=== PATIENT | male | born 1985 | race Caucasian/White ===

== ENCOUNTER 2016-08-18 15:30 | Emergency (ER) | payer SELFPAY ==
[~2016-08-18] VITALS: Ht 172.7 cm; Wt 124.0 kg
[~2016-08-18 15:30] MED LIST: ALPR.5 PO
[2016-08-18 15:39] VITALS: BP 117/73; PULSE 67; RESP 15; TEMP 98.1; O2SAT 98
--- NOTE | 2016-08-18 16:11 | PD ---
HPI Chief Complaint: Pain: Acute or Chronic Time Seen by Provider: 16:11 Travel History International Travel<30 days: No Contact w/Intl Traveler<30days: No Traveled to known affect area: No History of Present Illness HPI 31-year-old male presents to emergency Department with 2 day history of sore throat and ear pain as well as low-grade fever. Patient also reports about a week history of left foot pain which has gotten worse over the past week. 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 He denies any specific injury to this area. Patient denies cough, headache, postnasal drip, nausea, vomiting, or diarrhea. His daughter is sick with a sore throat as well. He has no known drug allergies. PFSH Past Medical History Diminished Hearing: No Tetanus Vaccination: Unknown Influenza Vaccination: No ?: Not Social History Alcohol Use: Yes (Occ.) Tobacco Use: No Substance Use: No Allergies-Medications (Allergen,Severity, Reaction): Coded Allergies: No Known Allergies (Unverified , 08/18/16) Reported Meds & Prescriptions Reported Meds & Active Scripts Active Xanax (Alprazolam) 0.5 Mg Tab 0.5 Mg PO Q8H PRN Review of Systems General / Constitutional: No: Fever Eyes: No: Visual changes HENT: No: Headaches Cardiovascular: No: Chest Pain or Discomfort Respiratory: No: Shortness of Breath Gastrointestinal: No: Abdominal Pain Genitourinary: No: Dysuria Musculoskeletal: No: Pain Skin: No Rash Neurologic: No: Weakness Psychiatric: No: Depression Endocrine: No: Polydipsia Hematologic/Lymphatic: No: Easy Bruising Physical Exam Narrative GENERAL: Patient appears no acute distress. SKIN: Warm and dry. Normal color. Normal turgor. HEAD: Atraumatic. Normocephalic. EYES: Pupils equal and round. No scleral icterus. No injection or drainage. ENT: No nasal bleeding or discharge. No sinus tenderness to palpation. Mucous membranes pink and moist. TMs are somewhat dull and erythematous bilaterally, but no loss of landmarks. Pharynx appears somewhat erythematous bilaterally with mild swelling. No exudate. Uvula is midline. NECK: Trachea midline. Supple and nontender. CARDIOVASCULAR: Regular rate and rhythm. RESPIRATORY: No accessory muscle use. Clear to auscultation. Breath sounds equal bilaterally. GASTROINTESTINAL: Abdomen soft, non-tender, nondistended. Hepatic and splenic margins not palpable. MUSCULOSKELETAL: Extremities without clubbing, cyanosis, or edema. No obvious deformities. Patient has pain along the left dorsal lateral foot without obvious deformity. Ankle is unremarkable. NEUROLOGICAL: Awake and alert. No obvious cranial nerve deficits. Motor grossly within normal limits. Five out of 5 muscle strength in the arms and legs. Normal speech. PSYCHIATRIC: Appropriate mood and affect; insight and judgment normal. Data Data Last Documented VS Vital Signs Date Time Temp Pulse Resp B/P Pulse Ox O2 Delivery O2 Flow Rate FiO2 08/18/16 15:39 98.1 67 15 117/73 98 Orders Foot, Complete ([id number]) (08/18/16 16:17) Ice/Cold Pack (08/18/16 16:17) [facility] Medical Decision Making Medical Screen Exam Complete: Yes Emergency Medical Condition: Yes Differential Diagnosis Pharyngitis. Otitis media. Strep throat. Left foot pain. Possible fracture. Plantar fasciitis. Tendinitis. Narrative Course Patient medically stable at time of exam. X-ray of the left foot is ordered. X-ray shows no acute fracture or dislocation. Patient will be treated with amoxicillin 875 twice a day 10 days. Patient also given ibuprofen 800 mg 3 times daily with food #30. Patient to ice left foot frequently. Discussed the need for better footwear. Patient follow-up with local primary care physician as needed. Diagnosis Primary Impression: Pharyngitis Qualified Code: J02.0 - Pharyngitis due to Streptococcus species Additional Impression: Tendinitis of left foot Referrals: [facility] Patient Instructions: General Instructions, Lower Extremity Tenosynovitis (DC) Additional Instructions: X-ray shows no acute fracture or dislocation. Patient will be treated with amoxicillin 875 twice a day 10 days. Patient also given ibuprofen 800 mg 3 times daily with food #30. Patient to ice left foot frequently. Discussed the need for better footwear. Patient follow-up with local primary care physician as needed. Med/Other Pt SpecificInfo: Prescription(s) given Disposition: DISCHARGE HOME Condition: Stable Philip Herron August 18, 2016 16:11
--- NOTE | 2016-08-18 16:59 | RADHPO ---
EXAM DATE/TIME: 08/18/2016 16:25 [facility] COMPARISON: No previous studies available for comparison. INDICATIONS : Complains of foot pain, no known injury. MEDICAL HISTORY : None. SURGICAL HISTORY : None. ENCOUNTER: Initial ACUITY: 1 month PAIN SCORE: 7/10 LOCATION: Left foot FINDINGS: Three view examination of the left foot demonstrates no soft tissue swelling, dislocation, or fractur e. The tarsal bones appear intact. The interphalangeal and metatarsophalangeal joints are intact. The calcaneus is intact. Bony mineralization is normal. CONCLUSION: No acute disease. Manpreet Rios MD on August 18, 2016 at 16:57 Board Certified Radiologist. This report was verified electronically.
[2016-08-18] MEDS ORDERED: IBUP800T23 PO (17:03)
[2016-08-18] MEDS ORDERED: AMOX875T PO (17:03)
== END 2016-08-18 17:24 | disposition home or self-care (01) ==
LOC: PHED 15:30
DX: J02.0 Streptococcal pharyngitis (principal); M77.52 Other enthesopathy of left foot and ankle
CPT/HCPCS: 73630; 99283

== ENCOUNTER 2017-02-23 10:43 | Emergency (ER) | payer MEDICAID ==
[~2017-02-23] VITALS: Ht 172.7 cm; Wt 127.0 kg
[~2017-02-23 10:43] MED LIST changes: +AMOX875T PO; +IBUP1TAB7 PO
[2017-02-23 10:56] VITALS: BP 164/72; PULSE 92; RESP 18; TEMP 98.2; O2SAT 100
--- NOTE | 2017-02-23 11:32 | PD ---
HPI Chief Complaint: Flank/Kidney Pain Time Seen by Provider: 11:32 Travel History International Travel<30 days: No Contact w/Intl Traveler<30days: No Traveled to known affect area: No History of Present Illness HPI 31-year-old male presents for Department with right-sided flank pain with worsening pain since yesterday. Patient states she's had some mild nausea and upset stomach for the past several days but today developed right-sided flank pain and worsening nausea since early this morning. Patient has no previous history of kidney stone in the past. Denies fever or chills has had vomiting 1. Denies dysuria. Denies testicular pain. Denies diarrhea. Pain is currently 8 out of 10 and worse with certain movements. Patient has no known drug allergies. PFSH Past Medical History Medical History: Denies Significant Hx Diminished Hearing: No ?: Not Past Surgical History Surgical History: No Previous Surgery Social History Alcohol Use: Yes (Occ.) Tobacco Use: No Substance Use: No Allergies-Medications (Allergen,Severity, Reaction): Coded Allergies: No Known Allergies (Unverified Adverse Reaction, Unknown, 02/23/17) Reported Meds & Prescriptions Reported Meds & Active Scripts Active Zofran (Ondansetron HCl) 4 Mg Tab 4 Mg PO Q6HR PRN Flomax (Tamsulosin HCl) 0.4 Mg Cap 0.4 Mg PO HS Ibuprofen 800 Mg Tab 800 Mg PO Q8H PRN Review of Systems Except as stated in HPI: all other systems reviewed are Neg General / Constitutional: No: Fever Eyes: No: Visual changes HENT: No: Headaches Cardiovascular: No: Chest Pain or Discomfort Respiratory: No: Shortness of Breath Gastrointestinal: Positive: Nausea, Vomiting, No: Diarrhea, Abdominal Pain Genitourinary: Positive: Flank Pain, No: Dysuria Musculoskeletal: No: Pain Skin: No Rash Neurologic: No: Weakness Psychiatric: No: Depression Endocrine: No: Polydipsia Hematologic/Lymphatic: No: Easy Bruising Physical Exam Narrative GENERAL: Patient appears in mild to moderate distress. SKIN: Warm and dry. Normal color. Normal turgor. HEAD: Atraumatic. Normocephalic. EYES: Pupils equal and round. No scleral icterus. No injection or drainage. ENT: No nasal bleeding or discharge. Mucous membranes pink and moist. Pharynx is clear. Airway is patent. NECK: Trachea midline. Supple and nontender. CARDIOVASCULAR: Regular rate and rhythm. RESPIRATORY: No accessory muscle use. Clear to auscultation. Breath sounds equal bilaterally. GASTROINTESTINAL: Abdomen soft, mildly tender in the right upper and lower quadrant, nondistended. No rebound. Moderate right-sided CVA tenderness with percussion. Hepatic and splenic margins not palpable. MUSCULOSKELETAL: Extremities without clubbing, cyanosis, or edema. No obvious deformities. NEUROLOGICAL: Awake and alert. No obvious cranial nerve deficits. Motor grossly within normal limits. Five out of 5 muscle strength in the arms and legs. Normal speech. PSYCHIATRIC: Appropriate mood and affect; insight and judgment normal. Data Data Last Documented VS Vital Signs Date Time Temp Pulse Resp B/P (MAP) Pulse Ox O2 Delivery O2 Flow Rate FiO2 02/23/17 11:54 98 Room Air 02/23/17 10:56 98.2 92 18 164/72 (102) Orders Orders Complete Blood Count With Diff (02/23/17 11:35) Comprehensive Metabolic Panel (02/23/17 11:35) Lipase (02/23/17 11:35) Urinalysis - C+S If Indicated (02/23/17 11:35) Ct Abd/Pel W/O Iv Contrast (02/23/17 11:35) Iv Access Insert/Monitor (02/23/17 11:35) Ecg Monitoring (02/23/17 11:35) Oximetry (02/23/17 11:35) Ondansetron Inj (Zofran Inj) (02/23/17 11:45) Sodium Chlor 0.9% 1000 Ml Inj (Ns 1000 M (02/23/17 11:35) Sodium Chloride 0.9% Flush (Ns Flush) (02/23/17 11:45) Ketorolac Inj (Toradol Inj) (02/23/17 11:45) Tamsulosin (Flomax) (02/23/17 12:15) Ed Discharge Order (02/23/17 12:25) Labs Laboratory Tests Test 02/23/17 11:25 02/23/17 11:30 White Blood Count 7.7 TH/MM3 Red Blood Count 4.72 MIL/MM3 Hemoglobin 14.6 GM/DL Hematocrit 43.8 % Mean Corpuscular Volume 93.0 FL Mean Corpuscular Hemoglobin 31.0 PG Mean Corpuscular Hemoglobin Concent 33.4 % Red Cell Distribution Width 13.2 % Platelet Count 221 TH/MM3 Mean Platelet Volume 8.8 FL Neutrophils (%) (Auto) 55.1 % Lymphocytes (%) (Auto) 35.1 % Monocytes (%) (Auto) 9.0 % Eosinophils (%) (Auto) 0.4 % Basophils (%) (Auto) 0.4 % Neutrophils # (Auto) 4.2 TH/MM3 Lymphocytes # (Auto) 2.7 TH/MM3 Monocytes # (Auto) 0.7 TH/MM3 Eosinophils # (Auto) 0.0 TH/MM3 Basophils # (Auto) 0.0 TH/MM3 CBC Comment DIFF FINAL Differential Comment Blood Urea Nitrogen 14 MG/DL Creatinine 0.97 MG/DL Random Glucose 112 MG/DL Total Protein 8.2 GM/DL Albumin 4.1 GM/DL Calcium Level 9.2 MG/DL Alkaline Phosphatase 48 U/L Aspartate Amino Transf (AST/SGOT) 16 U/L Alanine Aminotransferase (ALT/SGPT) 25 U/L Total Bilirubin 0.4 MG/DL Sodium Level 137 MEQ/L Potassium Level 3.6 MEQ/L Chloride Level 105 MEQ/L Carbon Dioxide Level 21.4 MEQ/L Anion Gap 11 MEQ/L Estimat Glomerular Filtration Rate 92 ML/MIN Lipase 57 U/L Urine Color YELLOW Urine Turbidity CLEAR Urine pH 7.0 Urine Specific [place] 1.020 Urine Protein TRACE mg/dL Urine Glucose (UA) NEG mg/dL Urine Ketones NEG mg/dL Urine Occult Blood LARGE Urine Nitrite NEG Urine Bilirubin NEG Urine Urobilinogen LESS THAN 2.0 MG/DL Urine Leukocyte Esterase NEG Urine RBC 162 /hpf Urine WBC LESS THAN 1 /hpf Urine Mucus FEW /lpf Microscopic Urinalysis Comment CULT NOT INDICATED MDM Medical Decision Making Medical Screen Exam Complete: Yes Emergency Medical Condition: Yes Differential Diagnosis Right flank pain. Renal colic. Urinary tract infection. Narrative Course Patient is medically stable at time of exam. Labs ordered included CBC, CMP, urinalysis. Patient was given Toradol 30 mg IV, as well as Zofran [address] of the abdomen and pelvis is ordered without contrast. Patient is given 1000 and also normal saline bolus. CBC is unremarkable. Urinalysis shows large occult blood. There are 162 RBCs per high-power field. CMP shows CT of the abdomen showed: 1. 3 mm calculus in proximal right ureter with minimal right-sided hydronephrosis and obstructive uropathy. Patient is given 0.4 mg Flomax by mouth. Patient be continued on ibuprofen 800 mg 3 times daily with food. Patient continued on Flomax 0.4 mg by mouth. Daily. #10. Patient given Zofran 4 mg every 6 hours when necessary nausea #20. Patient is to push fluids, and can take Tylenol as well as the above medications as needed for pain. Patient should follow with his primary care physician or call Dr. Cartagena, if symptoms continue. Patient can return to emergency Department with worsening symptoms as needed. Diagnosis Primary Impression: Kidney stone on right side Referrals: Sean Cartagena MD as needed Patient Instructions: General Instructions, Kidney Stones (ED) Departure Forms: Work Release Enter return to work date: Feb 23, 2017 Additional Instructions: CT of the abdomen showed: 1. 3 mm calculus in proximal right ureter with minimal right-sided hydronephrosis and obstructive uropathy. Patient is given 0.4 mg Flomax by mouth. Patient be continued on ibuprofen 800 mg 3 times daily with food. Patient continued on Flomax 0.4 mg by mouth. Daily. #10. Patient given Zofran 4 mg every 6 hours when necessary nausea #20. Patient is to push fluids, and can take Tylenol as well as the above medications as needed for pain. Patient should follow with his primary care physician or call Dr. La, if symptoms continue. Patient can return to emergency Department with worsening symptoms as needed. Med/Other Pt SpecificInfo: Prescription(s) given Scripts Ondansetron (Zofran) 4 Mg Tab 4 MG PO Q6HR Y for NAUSEA OR VOMITING, #20 TAB 0 Refills Prov: Robin Andrew MD 02/23/17 Tamsulosin (Flomax) 0.4 Mg Cap 0.4 MG PO HS for Manage Prostate Problems, #10 CAP 0 Refills Prov: Robin Andrew MD 02/23/17 Ibuprofen (Ibuprofen) 800 Mg Tab 800 MG PO Q8H Y for Pain/Inflammation, #60 TAB 0 Refills Prov: Robin Andrew MD 02/23/17 Disposition: 01 DISCHARGE HOME Condition: Stable Philip Herron Feb 23, 2017 11:32
[2017-02-23] MEDS ORDERED: SODIUM CHLOR 0.9% 1000 ML INJ 1,000 ML IV SCH (11:35)
[2017-02-23] MEDS ORDERED: KETOROLAC TROMETHAMINE 30 MG/ML (IVP) VIAL IVP ONE (11:45)
[2017-02-23] MEDS ORDERED: SODIUM CHLORIDE 0.9% FLUSH 10 ML FLUSH IV FLUSH PRN (11:45)
[2017-02-23] MEDS ORDERED: ONDANSETRON HCL 4 MG/2 ML VIAL IVP ONE (11:45)
[2017-02-23 11:54] VITALS: O2SAT 98
[2017-02-23 12:00] LABS: AUTOMATED NEUTROPHIL # 4.2 TH/MM3 (1.8-7.7); BASOPHIL % 0.4 % (0.0-2.0); EOSINOPHIL % 0.4 % (0.0-4.0); HEMATOCRIT 43.8 % (39.0-51.0); HEMO FLAGS DIFF FINAL; LYMPH % 35.1 % (9.0-44.0); LYMPHOCYTE # 2.7 TH/MM3 (1.0-4.8); MEAN CORPUSCULAR HGB CONC 33.4 % (32.0-36.0); NEUT % 55.1 % (16.0-70.0); PLATELET COUNT 221 TH/MM3 (150-450); RED BLOOD COUNT 4.72 MIL/MM3 (4.50-5.90); RED CELL DISTRIBUTION WIDTH 13.2 % (11.6-17.2); WHITE BLOOD COUNT 7.7 TH/MM3 (4.0-11.0)
[2017-02-23 12:03] LABS: BLOOD, URINE LARGE (NEG); COMMENT (UR) CULT NOT INDICATED; CULTURE IF INDICATED CULT NOT INDICATED; GLUCOSE,URINE NEG (NEG); KETONE, URINE NEG (NEG); MUCUS URINE FEW /lpf (OCC); NITRITE,URINE NEG (NEG); URINE COLOR YELLOW (YELLW/STRAW)
[2017-02-23 12:13] LABS: ALT (GPT) 25 U/L (12-78); ANION GAP 11 MEQ/L (5-15); AST (GOT) 16 U/L (15-37); BICARBONATE 21.4 MEQ/L (21.0-32.0); BLOOD UREA NITROGEN 14 MG/DL (7-18); CHLORIDE 105 MEQ/L (98-107); GLOMERULAR FILTRATION RATE 92 ML/MIN (>89); POTASSIUM 3.6 MEQ/L (3.5-5.1); SODIUM (NA) 137 MEQ/L (136-145)
--- NOTE | 2017-02-23 12:13 | RADRPT ---
EXAM DATE/TIME: 02/23/2017 11:53 [facility] COMPARISON: No previous studies available for comparison. INDICATIONS : Right flank pain. ORAL CONTRAST: No oral contrast ingested. RADIATION DOSE: 13.88 CTDIvol (mGy) ; Patient body habitus MEDICAL HISTORY : None SURGICAL HISTORY : None. ENCOUNTER: Initial ACUITY: 1 day PAIN SCALE: 7/10 LOCATION: Right flank TECHNIQUE: Volumetric scanning of the abdomen and pelvis was performed. Using automated exposure control and ad justment of the mA and/or kV according to patient size, radiation dose was kept as low as reasonably achievable to obtain optimal diagnostic quality images. DICOM format image data is available electro nically for review and comparison. FINDINGS: There is a 3 mm calculus in the proximal right ureter with minimal right hydronephrosis. No other coy al or ureteral calculi are identified. No bladder calculi. Lung bases clear. No acute findings in the liver, spleen, adrenals or pancreas. No calcified gallston es. No free fluid or free air. No bowel obstruction. No acute bony abnormalities. CONCLUSION: 1. 3 mm calculus in proximal right ureter with minimal right-sided hydronephrosis and obstructive uro khanh. Wei Zhang MD on February 23, 2017 at 12:10 Board Certified Radiologist. This report was verified electronically.
[2017-02-23] MEDS ORDERED: TAMSULOSIN HCL 0.4 MG CAP PO ONE (12:15)
[2017-02-23 12:16] LABS: ALKALINE PHOSPHATASE 48 U/L (45-117); TOTAL BILIRUBIN ADULT 0.4 MG/DL (0.2-1.0)
[2017-02-23] MEDS ORDERED: TAMS5CAP PO (12:24)
[2017-02-23] MEDS ORDERED: IBUP1TAB7 PO (12:24)
[2017-02-23] MEDS ORDERED: ZOFR4TAB PO (12:24)
[2017-02-23 12:32] VITALS: RESP 18
[2017-02-23 13:12] VITALS: BP 146/70
== END 2017-02-23 13:13 | disposition home or self-care (01) ==
LOC: NEPC 10:43
DX: N13.2 Hydronephrosis with renal and ureteral calculous obstruction (principal); R11.2 Nausea with vomiting, unspecified
CPT/HCPCS: 74176; 80053; 81001; 83690; 85025; 96361; 96374; 96375; 99285; J1885; J2405; J7030